=== PATIENT | female | born 1965 | race African-American/Black ===

== ENCOUNTER → 2016-07-16 | Outpatient (CLI) | payer OTHER ==
[~2016-07-16] MED LIST: ACTOS PO; AMARYL PO; BACTRIM DS TABL1 TA1 PO; BYETTA10 MCG/0.0 INJ; GABAPENTIN300 M2 PO; GLUMETZA1000 MG/BO PO; HYDROCODON-ACE1 EAC7 PO; HYZAAR 50-12.51 TAB; LIDOCAINE VISCOU1 ML EXT; LYRICA PO; PHENTERMINE H37.5 M1 PO; PRILOSEC PO; PROTONIX PO; TYLENOL SINUS; TYLOX 5/500 CAP1 CAP PO; VICODIN 5/500 T1 TAB PO; VICTOZA0.6 MG/0.1 SQ; VITAMIN D 4001 UDTAB PO; VOLTAREN75 MG PO; VYTORIN
--- NOTE | ~2016-07-16 | BD1 ---
[facility] A Service [facility] RADIOLOGY TEXT RESULTS PATIENT: PILY PONCE LOCATION: [facility] : 65 UNIT #: [id number] AGE: [address]: DIVINA WRIGHT APRN SEX: F ORDER DR: [id number] [facility] [address] [place], [place] [address] [id number] MR#: [id number] Acc #: [id number] NAME: PILY PONCE : 1965 SEX: F STUDY DATE/TIME: 07/16/2016 11:04 UNIT: [facility] ROOM: STUDY DESCRIPTION: BD Dexa Bone Dens 1+ Site Attending Physician: Divina Wright Referring Physician: Divina Wright Ordering Physician: Marcie Clements Primary Care Physician: Divina Wright MEDICAL IMAGING REPORT This report is preliminary unless electronic signature is present EXAM Bone density spine and hip, 07/16/16 HISTORY Screening. History of smoking 10 years. Perimenopausal. Bone density scanning performed upper 4 lumbar vertebral segments And proximal left femur in 50-year-old, 228 pound female. No comparison. FINDINGS L1-L4: Bone mineral density 1.408 g/cm2 for a T score of 0 standard deviations from the mean for a reference population of normal young individuals and Z score of 0.8 standard deviations above the mean for age-matched population. Proximal left femur: Total bone mineral density 1.077 g/cm2 for a T score of 1.1 standard deviation above the mean for a reference population of normal young individuals and Z score of 1.6 standard deviations above the mean for age-matched population. In the left femoral neck, the bone mineral density is 0.949 g/cm2 for a T score of 0.9 standard deviations above the mean for a reference population of normal young individuals and Z score of 1.7 standard deviations above the mean for age matched population. IMPRESSION Normal bone mineral density upper 4 lumbar vertebral segments and proximal left femur. Please correlate with the patient's clinical status. Continued surveillance is recommended. Dictated by... [facility] A Service of [facility] RADIOLOGY TEXT RESULTS PATIENT: PILY PONCE LOCATION: [facility] : 65 UNIT #: [id number] AGE: [address]: DIVINA WRIGHT APRN SEX: F ORDER DR: Nahid Khan M.D. THIS IS AN ELECTRONICALLY VERIFIED REPORT Nahid Khan M.D. at 07/17/2016 9:16 AM Patricia TD: 07/16/2016 20:06 JOB #: [id number] MEDICAL IMAGING REPORT Page 1 of 1 COPY
== END | disposition home or self-care (01) ==
LOC: CWCC 10:16
DX: Z13.820 Encounter for screening for osteoporosis (principal)
CPT/HCPCS: 77080

== ENCOUNTER 2016-10-31 17:27 | Emergency (ER) | payer OTHER ==
[~2016-10-31] VITALS: Ht 160 cm; Wt 101.6 kg
[2016-10-31 18:18] LABS: BASOPHIL% 0.5 % (0-2.5); EOSINOPHIL# 0.1 X10e3 (0-0.7); EOSINOPHIL% 1.4 % (0.0-7.0); HEMATOCRIT 39.4 % (35.0-45.0); HEMOGLOBIN 13.3 gm/dL (12.0-16.0); LYMPHOCYTE# 2.5 X10e3 (1.0-3.5); LYMPHOCYTE% 34.4 % (17.0-45.0); MEAN CELL VOLUME 95.6 FL (83-96); MEAN CORPUSCULAR HEMOGLOBIN 32.2 PG (28-34); MEAN CORPUSCULAR HGB CONC 33.7 g/dL (30-36); MEAN PLATELET VOLUME 6.8 FL (6.5-11.5); MONOCYTE# 0.4 X10e3 (0-1.0); MONOCYTE% 6.1 % (3.0-12.0); NEUTROPHIL# 4.2 X10e3 (1.5-7.1); NEUTROPHIL% 57.6 % (40-75); PLATELET COUNT 310 X10e3 (140-420); RED BLOOD COUNT 4.12 X10e (3.90-5.30); WHITE BLOOD COUNT 7.3 X10e3 (4.0-10.5)
[2016-10-31 18:21] LABS: DIFF IND NO
[2016-10-31 18:42] LABS: ALKALINE PHOSPHATASE 126 U/L (32-92); ALT (SGPT) 17 U/L (10-40); AMYLASE 18 U/L (0-46); AST (SGOT) 16 U/L (10-42); BILIRUBIN,TOTAL 0.4 mg/dL (0.2-2.0); BLOOD UREA NITROGEN 10 mg/dL (9-23); BUN/CREATININE RATIO 14.28; CALCIUM SERUM 9.1 mg/dL (8.4-10.2); CARBON DIOXIDE 28 mmol/L (22-31); CHLORIDE 102 mmol/L (100-111); CREATININE SERUM 0.7 mg/dL (0.6-1.4); GLOM FILT RATE Estimated 117.1 mL/min (>60); GLUCOSE FASTING 158 mg/dL (70-110); LIPASE 30 U/L (22-51); POTASSIUM 3.4 mmol/L (3.5-5.1); PROTEIN TOTAL SERUM 7.5 g/dL (6.0-8.3); SODIUM 139 mmol/L (135-145)
[2016-10-31 18:43] LABS: BILIRUBIN, DIRECT <0.1 mg/dL (0.0-0.2); BILIRUBIN,INDIRECT 0.3 mg/dL (0.0-0.9)
[2016-10-31 19:42] LABS: URINE SOURCE CLEAN CATCH
[2016-10-31 19:47] LABS: URINE APPEARANCE CLOUDY; URINE BILIRUBIN NEG (NEG); URINE BLOOD NEG (NEG); URINE COLOR YELLOW; URINE GLUCOSE 250 MG/DL (NEG); URINE KETONE NEG (NEG); URINE LEUKOCYTE ESTERASE NEG (NEG); URINE NITRATE NEG (NEG); URINE PROTEIN TRACE (NEG); URINE SPECIFIC GRAVITY 1.026 (1.003-1.035)
[2016-10-31 19:50] LABS: CULTURE INDICATED? NO
== END 2016-10-31 21:30 | disposition home or self-care (01) ==
LOC: CED 17:27
PROVIDERS: Emergency Medicine
DX: K29.00 Acute gastritis without bleeding (principal); E11.9 Type 2 diabetes mellitus without complications; F17.200 Nicotine dependence, unspecified, uncomplicated
CPT/HCPCS: 36415; 80048; 80076; 81003; 82150; 83690; 84703; 85025; 99284